=== PATIENT | male | born 1995 | race Hispanic/Latino ===

== ENCOUNTER 2017-12-23 08:30 | Day surgery (SDC) | payer BC ==
[2017-12-23] MEDS ORDERED: NACL 0.9% 500 ML 500 ML IV SCH (10:00)
[2017-12-23] MEDS ORDERED: NITROSTAT SL ONE (12:13)
[2017-12-23] MEDS ORDERED: XYLOCAINE CARDIAC IV ONE (12:14)
[2017-12-23] MEDS ORDERED: ADRENALIN ONE (12:14)
[2017-12-23] MEDS ORDERED: ATROPINE 0.1% (CARDIAC) ONE (12:14)
--- NOTE | 2017-12-23 13:00 | Short Stay Summary ---
Short Stay Documentation Date of service: 12/23/17 - History H&P: obtained from office - Allergies and Medications Current Medications: Allergies cephalexin [From Keflex] Allergy (Verified 12/23/17 08:44) Rash Active Medications Sodium Chloride (Nacl 0.9% 500 Ml) 500 mls @ 50 mls/hr IV DIRECT KAREN Last Admin: 12/23/17 09:09 Dose: 50 mls/hr - Physical exam General appearance: no acute distress Integumentary: no rash HEENT: Atraumatic Lungs: Clear to auscultation Breasts: deferred Heart: Regular rate Gastrointestinal: normal Male Genitourinary: deferred Female Genitourinary: deferred Rectal Exam: deferred Extremities: no ischemia Neurological: Normal gait - Brief post op/procedure progress note Date of procedure: 12/23/17 Pre-op diagnosis: Syncope Post-op diagnosis: same Procedure: TTT Anesthesia: none Findings: See report Surgeon: MARYJO SMITH Estimated blood loss: none Pathology: none Condition: stable - Hospital course Hospital course: Uneventful - Disposition Condition at discharge: Good Disposition: DC-01 TO HOME OR SELFCARE Short Stay Discharge Plan Activity: other (Avoid rapid change in positions, Avoid prolong standing) Diet: regular ([place] fluid and salt intake) Follow up with: ROMAN HALE MD [Primary Care Provider] - 7 Days
[2017-12-23 13:58] VITALS: BP 102/47
--- NOTE | 2017-12-24 11:31 | Procedure Note ---
PROCEDURE: Tilt table test. ORDERING PHYSICIAN: INDICATION: Syncope. DESCRIPTION OF PROCEDURE: After obtaining written consent, the patient was placed on the tilt table test in the labor specialist. Baseline blood pressure was 110/60 with a heart rate of 72 beats per minute. The patient was tilted to 85 degrees from horizontal. The blood pressure immediately after tilting was 114/72 with a heart rate of 80 beats per minute. 8 minutes into the upright tilting, the patient started complaining of sweatiness and dizziness. His heart rate started to decrease. He developed initially sinus bradycardia and ultimately went into prolonged asystole. He was immediately turned back to supine in Trendelenburg position and his heart rate immediately recovered to sinus. The lowest recorded blood pressure was 107/64. Upon return to supine position, blood pressure was 131/69 and the patient did regain consciousness spontaneously. IMPRESSION: This is a positive tilt table test with a pronounced cardioinhibitory response. The patient developed asystole 8 minutes after tilting without having to give nitroglycerin. RECOMMENDATION: The patient was recommended to follow up with referring quality assurance lab technician. The patient was advised regarding behavioral changes including liberal salt and fluid intake, avoiding Baer changes in positions from sitting or lying down to standing and avoid prolonged standing. The patient will discuss with his primary quality assurance lab technician future steps. JOB# [id number] RAMONITA/FELIPE
== END 2017-12-23 14:00 | disposition home or self-care (01) ==
LOC: CATHLABREC 08:30
PROVIDERS: ATTEND Internal Medicine
DX: R55 Syncope and collapse (principal); R94.39 Abnormal result of other cardiovascular function study; F17.210 Nicotine dependence, cigarettes, uncomplicated; Z88.1 Allergy status to other antibiotic agents
CPT/HCPCS: 93660; J7040; J0171; J0461; J2001